=== PATIENT | female | born 1985 | race Caucasian/White ===

== ENCOUNTER 2021-08-21 20:39 | Emergency (ER) | payer OTHER, MEDICAID, SELFPAY ==
--- NOTE | ~2021-08-21 | CT_ITS ---
EXAMINATION: 1. CT facial & cervical spine wo DATE: 08/21/2021 23:22 INDICATION: Facial and neck pain post trauma with head injury and laceration to the right upper lip. TECHNIQUE: 1. Computed tomography (CT) of the maxillofacial region and of the cervical spine were performed with out intravenous contrast. Sagittal and coronal reconstructions of both regions were obtained. Automat ed exposure control and iterative reconstruction technique were employed. The dose-length product was 284.23 mGy-cm. COMPARISON: None. FINDINGS: Maxillofacial CT: Chronic healed blowout fracture along the inferior wall of the left orbit which is healed with mild a pex inferior angulation. Orbits are otherwise normal. There is also an irregular contour to the bilat eral nasal bones without associated soft tissue swelling or acute appearing fracture which also likel y represents sequela of an old healed fracture. No acute maxillofacial fractures identified. The maribel ible, pterygoid plates and zygomatic arches all appear intact. Mild focal wall thickening versus muco us retention cyst at the left maxillary sinus. Remainder of the paranasal sinuses are clear. Soft tis sues at the right side of the upper lobe. There are multiple dental caries along the mandible. Mild r ight and moderate left temporomandibular osteoarthritis. Cervical spine CT: Mild cervicothoracic levocurvature. Nonfocal mild reversal of normal cervical lordosis which is likel y positional. Vertebral body heights are normal. No fracture. Moderate disc height loss at C5-C6 with mild left and moderate right uncovertebral osteoarthritis and associated posterior disc osteophyte c omplex which contributes to mild central canal and bilateral neural foraminal stenosis. Mild disc hei ght loss at C2-C3 through C4-C5 with additional mild left and mild to moderate right uncovertebral os teoarthritis contributing to mild right neural foraminal stenosis at C3-C4. Multilevel mild bilateral cervical facet osteoarthritis. Cervical soft tissues are unremarkable. Minimal biapical pleural-pare nchymal scarring. IMPRESSION: 1. Old healed fractures of the nasal bones and left inferior orbital wall. No acute osseous abnormali ty. 2. Mild to moderate cervical spondylosis with likely positional mild reversal of the normal cervical lordosis. No other acute osseous abnormality. Reviewed, dictated and finalized at location A. IMPRESSION: 1. Old healed fractures of the nasal bones and left inferior orbital wall. No a cute osseous abnormality. 2. Mild to moderate cervical spondylosis with likely positional mild reversal o f the normal cervical lordosis. No other acute osseous abnormality.
--- NOTE | ~2021-08-21 | CT_ITS ---
EXAMINATION: CT brain wo con DATE: 08/21/2021 23:22 INDICATION: Head injury TECHNIQUE: Computed tomography (CT) of the head was performed without intravenous contrast. Sagittal and coronal reconstructions were performed. The mA was adjusted according to patient size. Iterative reconstruction technique was employed. The dose-length product was 605.33 mGy-cm. COMPARISON: None FINDINGS: No fracture. No acute intracranial hemorrhage, acute infarction or abnormal extra axial fluid collect ion. Ventricles are normal and symmetric. No mass/mass effect. The orbits, paranasal sinuses and mast oid air cells are normal. IMPRESSION: 1. Normal head CT. Reviewed, dictated and finalized at location A. IMPRESSION: 1. Normal head CT.
[2021-08-21 20:51] VITALS: BP 135/68; PULSE 73; RESP 16; TEMP 36.7; O2SAT 100
[2021-08-21 22:57] VITALS: BP 105/68; PULSE 62; RESP 18; O2SAT 99
--- NOTE | 2021-08-21 23:03 | ED.GENADULT ---
HPI - General Adult General Chief complaint: Wound/Laceration Stated complaint: lip laceration Time Seen by Provider: 08/21/21 22:52 History of Present Illness HPI narrative: 36-year-old female presented to the emergency department for evaluation of a laceration to her right upper lip. Patient was working on cutting a tree branch and it rebounded and struck her in the face. Patient states she was stunned but had no loss of consciousness. Patient does have some facial tenderness to palpation. Patient also does have some neck pain. Related Data Home Medications Medication Instructions Recorded Confirmed No Home Medications 07/31/19 09/23/20 Allergies Allergy/AdvReac Type Severity Reaction Status Date / Time No Known Allergies Allergy Verified 08/21/21 20:58 Review of Systems Review of Systems: CONSTITUTIONAL: Denies fever, chills, or sweats. EYES: Denies visual changes, redness, or discharge. ENT: Right lip lac. CARDIOVASCULAR: Denies chest pain, palpitations, or edema. RESPIRATORY: Denies cough or dyspnea. GASTROINTESTINAL: Denies abdominal pain, nausea, vomiting, or diarrhea. GENITOURINARY: Denies dysuria or hematuria. SKIN: Denies rash or itching. MUSCULOSKELETAL: Denies back pain, joint pain, or myalgia. NEUROLOGIC: Denies headache, numbness, or weakness. PSYCHIATRIC: Denies anxiety or depression. [facility] Surgical History Surgical History Hx of cholecystectomy Social History Social History Smoking packs per day: 0.5 Smoking cigarettes per day: 10.0 Years smoked: 14 Smoking pack-years: 7.00 Smoking status: Current every day smoker Alcohol intake: current Alcohol use details: socially,1-2 times a month Substance use: never Exam Narrative: APPEARANCE: Well appearing, no pain, no distress, well-nourished. HEAD: normocephalic, facial laceration, dental and facial tenderness to palpation. EYES: PERRLA/EOMI, conjunctivae clear. NOSE: Normal no drainage EARS:TMS clear with good light reflex. NECK: Supple. No adenopathy, no masses. RESPIRATORY: Airway patent, respirations nonlabored. Clear to auscultation bilaterally, no rales, rhonchi, wheezing. CARDIOVASCULAR: Regular rate and rhythm without murmurs rubs or gallops. ABDOMINAL: Soft, nontender, nondistended, normal bowel sounds MUSCULOSKELETAL: Moves all extremities. Strength/ROM intact, No edema, No calf tenderness. NEURO: Alert. Cranial nerves II through XII intact. Grossly intact SKIN: Warm, dry. Normal Color PSYCHIATRIC: Normal affect/mood. Course Course Emergency Course: He showed concern for old nasal fracture or old left orbital wall fracture. Patient denies any prior history of facial fracture. Patient has no nasal tenderness and no left-sided facial tenderness. Laceration was repaired. Patient and family were updated on the importance of close follow-up and on wound care. All questions and concerns were addressed. Vital Signs Vital signs: Vital Signs Temperature 98.0 F 08/21/21 20:51 Pulse Rate 73 08/21/21 20:51 Respiratory Rate 16 08/21/21 20:51 Blood Pressure 135/68 08/21/21 20:51 Pulse Oximetry 100 08/21/21 20:51 Oxygen Delivery Room Air 08/21/21 20:51 Temperature 98.0 F 08/21/21 20:51 Pulse Rate 60 08/22/21 00:29 Respiratory Rate 16 08/22/21 00:29 Blood Pressure 102/65 08/22/21 00:29 Pulse Oximetry 100 08/22/21 00:29 Oxygen Delivery Room Air 08/21/21 22:57 Procedures Laceration Laceration 1: Time: 00:08 Site: face and lip Side (If applicable): right Size (cm): 2 Description: linear Depth: simple, single layer Local Anesthetic: lidocaine 1% and with bicarb Amount of anesthesia used (mL): 1 ====== Skin Level ====== Skin layer closed with: prolene Size (cm): 6-0 Number of sutures: 3
[2021-08-22] MEDS: HYDROcodone/acetaminophen (*CRX) 5-325 MG TABLET 1 TAB PO (00:27)
[2021-08-22] MEDS: IBUPROFEN 600 MG TABLET PO (00:27)
[2021-08-22 00:29] VITALS: BP 102/65; PULSE 60; RESP 16; O2SAT 100
== END 2021-08-22 00:44 | disposition home or self-care (01) ==
LOC: ANHED 08-22 00:26
PROVIDERS: Emergency Provider Emergency Medicine; PCP Physician Assistant
DX: S01.511A Laceration without foreign body of lip, initial encounter (principal); S19.9XXA Unspecified injury of neck, initial encounter; F17.210 Nicotine dependence, cigarettes, uncomplicated; W22.8XXA Striking against or struck by other objects, initial encounter; Y93.H2 Activity, gardening and landscaping
CPT/HCPCS: 12011; 70450; 70486; 72125; 99284; A9270

== ENCOUNTER 2022-08-30 11:59 | Outpatient (CLI) | payer OTHER, SELFPAY ==
--- NOTE | ~2022-08-30 | MMUS_ITS ---
EXAMINATION: MM diagnostic shazia BI w chetan, US breast RT limited HISTORY: Tenderness and lump in the upper outer quadrant of the right breast TECHNIQUE: Craniocaudal, mediolateral, and mediolateral oblique 3-D tomosynthesis images of the anayeli ts were performed and synthetic 2-D images were generated. CAD analysis was submitted and interpreted . High resolution limited right breast ultrasound was performed. COMPARISON: None, baseline BREAST PARENCHYMAL COMPOSITION: The breasts are extremely dense, which lowers the sensitivity of mamm ography. FINDINGS: MAMMOGRAPHIC FINDINGS: No suspicious mass, calcification, or architectural distortion are identified in either breast to sug gest malignancy. No mammographic correlate is identified for the patient's reported right breast pain or palpable abnormality. ULTRASOUND: There is a 5 mm x 3 mm oval, circumscribed, parallel, hypoechoic mass with no posterior features or i nternal vascularity at the 10:00 location, 5 cm from the nipple in the right breast corresponding to the palpable abnormality of concern. IMPRESSION: 1. Probably benign sonographically detected right breast mass corresponding to the palpable abnormali ty of concern. 2. Recommend 6 month follow-up targeted right breast ultrasound. BI-RADS category 3, probably benign findings. Reviewed, dictated and finalized at location A. IMPRESSION: 1. Probably benign sonographically detected right breast mass corresponding to the palpable abnormality of concern. 2. Recommend 6 month follow-up targeted right breast ultrasound. BI-RADS category 3, probably benign findings.
== END 2022-08-30 12:00 | disposition home or self-care (01) ==
LOC: ANHIMG 12:02
PROVIDERS: PCP Physician Assistant; Visit Provider Nurse Practitioner Obstetrics & Gynecology
DX: N63.10 Unspecified lump in the right breast, unspecified quadrant (principal); R92.8 Other abnormal and inconclusive findings on diagnostic imaging of breast
CPT/HCPCS: 76642; 77062; 77066; G0279

== ENCOUNTER 2023-03-06 09:56 | Emergency (ER) | payer OTHER, SELFPAY ==
[2023-03-06 10:34] VITALS: BP 122/60; PULSE 59; RESP 20; TEMP 37; O2SAT 100
--- NOTE | 2023-03-06 13:54 | ECG_ITS ---
Measurements Intervals [place] Rate: 56 P: 70 RI: 145 QRS: 60 QRSD: 109 T: 44 QT: 440 QTc: 425 Interpretive Statements SINUS BRADYCARDIA INCOMPLETE RIGHT BUNDLE BRANCH BLOCK BASELINE ARTIFACT- I, III, AVL BORDERLINE ECG NO PREVIOUS ECG AVAILABLE FOR COMPARISON Electronically Signed On 03-06-2023 14:05:07 NUTRITION SERVICES AIDE by Tank Lyon D.O.
--- NOTE | 2023-03-06 13:54 | ED.DIZZY ---
HPI - Dizziness General Chief Complaint: Dizziness Stated Complaint: dizzy/shaky/vision changes Time Seen by Provider: 03/06/23 13:46 History of Present Illness HPI Narrative: Patient is a healthy 38-year-old female here with dizziness and a headache. She states that over the last couple of days she has been experienced a headache. She notes that it seems to be around her right nondenominational area and radiates throughout. No associated light sensitivity or visual changes. She notes that this morning she started experiencing some dizziness. Dizziness seems to be worse with bending over and improves at rest. She describes the dizziness as feeling of the room is spinning as well as feeling as though she may pass out. 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 Patient currently is not feeling dizzy at rest. She denies any associated chest pain or shortness of breath. She denies any recent illnesses. No cough, congestion, fever, chills. She does note that she has had a swollen lymph node for the last few weeks on her right side near her neck which seems to be improving in size. She is awaiting a primary care doctor visit for this. She denies any prior history of PE or DVT. Was a prior smoker, not an active smoker. She does not take control pills. No prior history of cardiac disease. No history of migraines. Related Data Home Medications Medication Instructions Recorded Confirmed No Home Medications 07/31/19 10/03/22 Allergies Allergy/AdvReac Type Severity Reaction Status Date / Time No Known Allergies Allergy Verified 10/03/22 07:40 Review of Systems Review of Systems: All systems reviewed & are unremarkable except as noted in HPI and below PMFSH Surgical History Surgical History Hx of cholecystectomy Social History Social History Smoking packs per day: 0.5 Smoking cigarettes per day: 10.0 Years smoked: 14 Smoking pack-years: 7.00 Smoking status: Former smoker Alcohol intake: current Alcohol use details: socially,1-2 times a month Substance use: never Exam Narrative: GENERAL: Well-appearing, well-nourished, and in no acute distress. HEAD: Normocephalic, atraumatic. EYES: PERRLA and EOMI. ENT: Nares clear. Mucous membranes moist. No TM abnormalities bilaterally. No appreciated lymphadenopathy in the neck NECK: Supple. CHEST: Clear to auscultation. No respiratory distress. HEART: Regular rate and rhythm. Normal peripheral pulses. ABDOMEN: Soft, nontender, nondistended. EXTREMITIES: Normal range of motion. No edema. SKIN: Warm, dry, no rash. NEURO: No focal deficits. Alert and oriented x3. PSYCH: Normal mood and affect. Course Course Emergency Course: Chart review performed. Patient here with multiple symptoms including headache, dizziness, right eye spots and twitching, upper body tingling. Triage vitals grossly normal. PCP visit note reviewed from 10/03/22 noting active smoker. Patient seen evaluated, nontoxic appearing. Differentials include atypical migraine, nonspecific headache, vertigo, less likely ACS, arrhythmia, PE. Will give IV fluids, migraine cocktail, re-evaluate. Lab work reviewed. CBC within normal limits, D-dimer within normal limits at 0.39. Chemistry grossly normal, troponin negative. Influenza, RSV, COVID negative. Patient re-evaluated and updated on negative workup. She is feeling much better, headache is significantly improved. She did ambulate to the bathroom without difficulty and without dizziness. Advised she should follow up with her primary care doctor. The results of pertinent diagnostic studies and exam findings were discussed. The patient?s provisional diagnosis and plan of care we
[2023-03-06 14:16] VITALS: PULSE 58
[2023-03-06 14:30] LABS: Basophils Absolute Auto 0.1 K/mm3 (0.0-0.1); Basophils Percent Auto 0.5 % (0.2-1.2); Eosinophils Absolute Auto 0.1 K/mm3 (0-0.3); Eosinophils Percent Auto 0.5 % (0-4.4); Hemoglobin 13.6 g/dL (12.0-15.0); Immature Granulocyte Absolute 0.03 K/mm3 (0.00-0.031); Immature Granulocyte Percent A 0.3 % (0-0.5); Lymphocytes Absolute Auto 1.92 K/mm3 (0.9-3.2); Lymphocytes Percent Auto 21.1 % (18.3-44.2); Mean Corpuscular Hemoglobin 32.5 pg (26-34); Mean Corpuscular Volume 95.7 fl (80-100); Mean Platelet Volume 10.3 fl (7.4-10.4); Monocytes Absolute Auto 0.5 K/mm3 (0.1-0.6); Monocytes Percent Auto 5.2 % (2.6-8.5); Neutrophils Absolute Auto 6.6 K/mm3 (1.3-6.7); Neutrophils Percent Auto 72.4 % (45.5-73.1); Platelet Count Result 312 k/mm3 (150-375); Red Blood Count 4.18 M/mm3 (4.2-5.4); Red Cell Distribution Width 11.9 % (11.5-14.5); White Blood Count 9.1 K/mm3 (4.5-10.0)
[2023-03-06] MEDS: SODIUM CHLORIDE 0.9% IV 1,000 ML 999 ML IV CONT (14:40)
[2023-03-06] MEDS: METOCLOPRAMIDE HCL INJ 10 MG/2 ML VIAL IV PUSH (14:40)
[2023-03-06] MEDS: KETOROLAC 30 MG/ML VIAL (*BKC) 15 MG IV PUSH (14:40)
[2023-03-06 14:41] LABS: Alanine Aminotransferase 19 U/L (6-35); Albumin Level 4.5 g/dL (3.5-5.1); Alkaline Phosphatase 52 U/L (38-126); Anion Gap 9 mmol/L (8-16); Aspartate Amino Transferase 30 U/L (14-36); Bilirubin,Total 0.7 mg/dL (0.2-1.3); Blood Urea Nitrogen 9 mg/dL (7-17); Calcium 9.2 mg/dL (8.4-10.2); Carbon Dioxide 25 mmol/L (22-30); Chloride 105 mmol/L (98-107); Estimated Glomerular Filt Rate > 60; Glucose 83 mg/dL (65-110); Magnesium 1.7 mg/dL (1.6-2.3); Sodium 139 mmol/L (137-145)
[2023-03-06] MEDS: diphenhydrAMINE HCl INJ 50 MG/ML VIAL 25 MG IV PUSH (14:41)
[2023-03-06 14:45] LABS: D Dimer 0.39 ug/mL (<0.48)
[2023-03-06 14:49] LABS: Troponin I < 0.012 ng/mL (0.000-0.034)
[2023-03-06 15:16] LABS: Influenza A QL RT-PCR Negative (Negative); Influenza B QL RT-PCR Negative (Negative); RSV RNA, RT-PCR Negative (Negative); SARS-CoV-2 RNA PCR Negative (Negative)
== END 2023-03-06 16:54 | disposition home or self-care (01) ==
PROVIDERS: Emergency Provider Student in an Organized Health Care Education/Training Program; PCP Physician Assistant
DX: R42 Dizziness and giddiness (principal); R51.9 Headache, unspecified; Z87.891 Personal history of nicotine dependence; Z20.822 Contact with and (suspected) exposure to COVID-19
CPT/HCPCS: 36415; 80053; 83735; 84484; 85025; 85380; 87637; 93005; 96361; 96374; 96375; 99284; J1200; J1885; J2765; J7030

== ENCOUNTER 2023-04-04 14:37 | Emergency (ER) | payer OTHER, SELFPAY ==
--- NOTE | 2023-04-04 14:39 | ED.SKABFB ---
HPI - Skin/Abscess/Foreign Bdy General Chief complaint: Animal Bite Stated complaint: Cat Bite Time Seen by Provider: 04/04/23 14:39 Source: patient Mode of arrival: ambulatory Limitations: no limitations History of Present Illness HPI narrative: Patient is a 38-year-old female who presents with cat bite happened with stray cat last night. Patient was bit on left hand proximal of thumb and tip of right index finger. Patient also has scratches on bilateral hands and right calf. Patient wash with soap and water and hydrogen peroxide. Patient applied Neosporin. Reports left hand has swollen today. Related Data Allergies Allergy/AdvReac Type Severity Reaction Status Date / Time No Known Allergies Allergy Verified 04/04/23 14:40 Review of Systems Review of Systems: All systems reviewed & are unremarkable except as noted in HPI and below Constitutional: Constitutional: Denies body ache(s), Denies chills, Denies fatigue, Denies fever(s), Denies headache(s), Denies malaise and Denies weakness Eyes: Eyes: Denies blurry vision, Denies irritation and Denies loss of vision ENT: Denies otalgia, Denies headache(s), Denies nasal discharge, Denies sinus pain and Denies sore throat Cardiovascular: Cardiovascular: Denies chest pain, Denies irregular heart rhythm and Denies dyspnea Respiratory: Respiratory: Denies dyspnea Gastrointestinal: Gastrointestinal: Denies abdominal pain, Denies melena, Denies hematochezia, Denies diarrhea, Denies nausea and Denies vomiting Musculoskeletal: Musculoskeletal: Denies back pain, Denies myalgias and Denies arthralgias Integumentary/Breasts: Skin/Breast: Denies pruritus, Denies rash and Reports wounds Neurologic: Denies headache(s), Denies loss of vision and Denies weakness Psychiatric: Psychiatric: Reports no additional psychiatric complaints Endocrine: Endocrine: Denies fatigue PMFSH Surgical History Surgical History Hx of cholecystectomy Social History Social History Smoking packs per day: 0.5 Smoking cigarettes per day: 10.0 Years smoked: 14 Smoking pack-years: 7.00 Smoking status: Former smoker Alcohol intake: current Alcohol use details: socially,1-2 times a month Substance use: never Comments At time of signature, agree with nursing past medical, surgical, social and family history. There is no relevant family history pertinent to the presenting complaint. Exam Const: General: cooperative, healthy appearing, comfortable, no acute distress and well nourished Nutritional Appearance: well nourished Orientation/consciousness: patient oriented x3 Limitations: no limitations HENMT: Head: normal to inspection, normocephalic and atraumatic Ears: hearing grossly normal bilaterally and external ears normal Face/Nose/Sinus: Normal external nose present, normal facial exam and face symmetric Face and sinus: normal facial exam and face symmetric Mouth: Yes lip normal Eyes: General: appearance normal, both eyes and all related structures Alignment and Position: alignment normal and position normal Periorbital: periorbital findings normal Eyelids: eyelids normal Pupils: Equal, round and reactive pupils present EOM: EOMs intact bilaterally Neck: Neck: normal visual inspection, full ROM and supple Chest: Chest palpation & inspection: normal inspection of the chest Resp: Effort & Inspection: normal respiratory effort and able to speak in complete sentences Auscultation: clear to auscultation bilaterally Cardio: Rate: regular rate Rhythm: regular rhythm Heart sounds: S1 normal heart sound present and S2 normal heart sound present GI: Inspection: normal to inspection Skin: General skin exam: normal color and no rashes or lesions noted Neuro: General: patient oriented x3 and moves all extremities Cranial nerves: Yes Equal, round and reactive pupils present
[2023-04-04 14:50] VITALS: BP 99/56; PULSE 96; RESP 16; TEMP 37; O2SAT 100
[2023-04-04] MEDS: TETANUS,DIPHTHERIA,AC PERTUSSIS ADULT (0.5 ML) BOOSTRIX IM (15:07)
== END 2023-04-04 15:11 | disposition home or self-care (01) ==
LOC: EXPCOLL 14:44
PROVIDERS: Emergency Provider Nurse Practitioner Family; PCP Physician Assistant
DX: S61.210A Laceration without foreign body of right index finger without damage to nail, initial encounter (principal); S61.452A Open bite of left hand, initial encounter; W55.01XA Bitten by cat, initial encounter; Z23 Encounter for immunization; Z87.891 Personal history of nicotine dependence
CPT/HCPCS: 90471; 90715; 99213; G0463

== ENCOUNTER 2023-09-24 08:20 | Outpatient (CLI) | payer OTHER, SELFPAY ==
--- NOTE | ~2023-09-24 | US_ITS ---
US breast RT limited 09/24/2023 09:22 Indication: Right breast mass Procedure: High-resolution Limited ultrasound of the right breast Comparison: 08/30/2022 Findings: At 9:30, 6 cm from the nipple there is a 5 mm cyst. At 10:00, 4 cm from the nipple there is an intramammary lymph node measuring 6 mm. No suspicious masses to suggest malignancy. Impression: 1: No sonographic evidence for malignancy. Benign findings. Routine yearly screening mammogram beginning at age 40 and regular clinical breast examination are re commended. BI-RADS CATEGORY 2 - BENIGN FINDINGS Reviewed, dictated and finalized at location B. Impression: 1: No sonographic evidence for malignancy. Benign findings. Routine yearly screening mammogram beginning at age 40 and regular clinical giovani ast examination are recommended. BI-RADS CATEGORY 2 - BENIGN FINDINGS
== END 2023-09-24 08:21 | disposition home or self-care (01) ==
PROVIDERS: PCP Physician Assistant; Visit Provider Nurse Practitioner
DX: N63.10 Unspecified lump in the right breast, unspecified quadrant (principal)
CPT/HCPCS: 76642

== ENCOUNTER 2024-05-04 17:22 | Emergency (ER) | payer OTHER, SELFPAY ==
--- NOTE | ~2024-05-04 | CT_ITS ---
EXAMINATION: CTA chest PE protocol DATE: 05/04/2024 20:44 INDICATION: cp, SOB, family hx of blood clots TECHNIQUE: Computed tomography angiography (CTA) of the chest was performed with 100 mL Omnipaque-350 intravenous contrast timed to evaluate the pulmonary arteries. Coronal maximum intensity projection 3D-reconstructions were created by the technologist. The dose-length product (DLP) was 153.66 mGy-cm. Automated exposure control and iterative reconstruction technique were employed. COMPARISON: X-ray chest, same date. FINDINGS: Lung parenchyma and airways: 6 mm pleural-based nodule with predominantly groundglass opacity and pos sible minimal solid component and tiny associated air cyst or area of cavitation. Minimal biapical pl eural scarring Right minor fissure node. Pleura: Unremarkable. Thoracic inlet, axillae and chest wall: Unremarkable. Thoracic aorta: No significant dilation. No dissection. Mediastinum: Normal. Heart and pericardium: Normal. Coronary artery calcifications: . Upper abdomen: Status post cholecystectomy. Bones: No acute osseous finding. Pulmonary arteries: Study quality: Adequate. No pulmonary emboli detected. IMPRESSION: No CT evidence of acute pulmonary embolus. 6 mm left upper lobe partly solid pulmonary nodule, presumably a small focus of inflammation or infec tion. Recommend low-dose noncontrast CT of the chest in 3-6 months to confirm resolution. Otherwise, no acute process detected in the chest. Reviewed, dictated and finalized at location K. IMPRESSION: No CT evidence of acute pulmonary embolus. 6 mm left upper lobe partly solid pulmonary nodule, presumably a small focus of inflammation or infection. Recommend low-dose noncontrast CT of the chest in 3 -6 months to confirm resolution. Otherwise, no acute process detected in the chest.
--- NOTE | ~2024-05-04 | XR_ITS ---
CHEST RADIOGRAPH, PA AND LATERAL CLINICAL HISTORY: cp, tingling and cold hands, . COMPARISON: None available TECHNIQUE: PA and lateral views of the chest. FINDINGS The cardiomediastinal silhouette is unremarkable. The lungs are clear. Visualized osseous structures and soft tissues are unremarkable. IMPRESSION: No focal infiltrate or effusion. Reviewed, dictated and finalized at location A.
[2024-05-04 17:24] VITALS: BP 128/66; PULSE 76; RESP 16; TEMP 37.1; O2SAT 100
--- NOTE | 2024-05-04 17:24 | ECG_ITS ---
Test Date: 2024-05-04 17:30:59 Measurements Intervals [place] Rate: 74 P: 76 NV: 134 QRS: 65 QRSD: 103 T: 50 QT: 391 QTc: 436 Interpretive Statements SINUS RHYTHM POSSIBLE LEFT ATRIAL ENLARGEMENT [-0.1mV P-WAVE IN V1/V2] INCOMPLETE RIGHT BUNDLE BRANCH BLOCK [90+ ms QRS DURATION, TERMINAL R IN V1/V2, 40+ ms S IN I/aVL/V4/V5/V6] No previous ECG available for comparison Electronically Signed On 05-05-2024 14:34:30 CDT by Дмитрий Oliver M.D.
[2024-05-04 17:41] LABS: Basophils Absolute Auto 0.1 K/mm3 (0.0-0.1); Basophils Percent Auto 0.6 % (0.2-1.2); Eosinophils Absolute Auto 0.1 K/mm3 (0-0.3); Eosinophils Percent Auto 1.2 % (0-4.4); Hematocrit 36.2 % (37.0-47.0); Hemoglobin 12.5 g/dL (12.0-15.0); Immature Granulocyte Absolute 0.02 K/mm3 (0.00-0.031); Immature Granulocyte Percent A 0.2 % (0-0.5); Lymphocytes Absolute Auto 2.86 K/mm3 (0.9-3.2); Lymphocytes Percent Auto 32.1 % (18.3-44.2); Mean Corpuscular HGB Conc 34.5 g/dl (32-36); Mean Corpuscular Hemoglobin 33.1 pg (26-34); Mean Corpuscular Volume 95.8 fl (80-100); Mean Platelet Volume 9.9 fl (7.4-10.4); Monocytes Absolute Auto 0.6 K/mm3 (0.1-0.6); Monocytes Percent Auto 6.8 % (2.6-8.5); Neutrophils Absolute Auto 5.3 K/mm3 (1.3-6.7); Neutrophils Percent Auto 59.1 % (45.5-73.1); Platelet Count Result 291 k/mm3 (150-375); Red Blood Count 3.78 M/mm3 (4.2-5.4); Red Cell Distribution Width 11.8 % (11.5-14.5); White Blood Count 8.9 K/mm3 (4.5-10.0)
[2024-05-04 17:56] LABS: Alanine Aminotransferase 18 U/L (6-35); Albumin Level 4.4 g/dL (3.5-5.1); Alkaline Phosphatase 56 U/L (38-126); Anion Gap 10 mmol/L (4-12); Aspartate Amino Transferase 24 U/L (14-36); Bilirubin,Total 0.4 mg/dL (0.2-1.3); Blood Urea Nitrogen 12 mg/dL (7-17); Calcium 9.2 mg/dL (8.4-10.2); Carbon Dioxide 24 mmol/L (22-30); Chloride 103 mmol/L (98-107); Estimated CRCL calculation 76 ml/min; Estimated Glomerular Filt Rate > 60; Glucose 94 mg/dL (65-110); Lipase 128 U/L (23-300); Potassium 3.5 mmol/L (3.4-5.0); Prothrombin Time 13.8 Seconds (11.1-14.7); Sodium 137 mmol/L (137-145)
[2024-05-04 17:57] LABS: Partial Thromboplastin Time 32.3 Seconds (22.3-36.8)
[2024-05-04 18:07] LABS: Troponin I < 0.012 ng/mL (0.000-0.034)
--- OUTSIDE RECORDS SUMMARY | 2024-05-04 19:11 | XMS_ITS | Data Portability ---
Author Organization 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 Patient will come back in a year unless there are new symptoms. [email or web address] Not available 05/01/2021 13:03:07 08/16/2022 08/16/2022 Annual gynecological exam performed. Patient will come back in a year unless there are new symptoms. Not available 08/16/2022 11:47:13 08/27/2023 08/27/2023 Annual gynecological exam performed. Patient will come back in a year unless there are new symptoms. [email or web address] Not available 08/27/2023 14:44:44 Plan of Treatment Reminders Order Date Submit Date Provider Last Modified By Organization Details Last Modified Time Details Appointments None recorded. Lab CBC w/ auto diff 2021 022 [facility] (Lab), [address], [place], [address], 2 05:32:04 CMP, serum or plasma 2021 022 [facility] (Lab), [address], [place], [address], 2 05:32:05 lipid panel, blood 2021 022 [facility] (Lab), [address] [place], [address], 2 05:32:05 TSH, serum or plasma 2021 022 [facility] (Lab), [address] [facility], [place], [address], 2 05:32:05 vitamin D, 25-hydroxy, total, serum 2021 022 [facility] (Lab), [address], [place], [address], 2 05:32:06 HbA1c (hemoglobin A1c), blood 2021 022 [facility] (Lab), [address] [facility] [facility] [address], [place], [address], 2 05:32:07 Referral None recorded. Procedures None recorded. Surgeries None recorded. Imaging US, breast, unilateral - due for repeat 6 month right breast u/s 2023 024 [facility], [address], [place], [address], 4 10:51:00 US, breast, unilateral, w/ axilla 2022 023 [facility], [address], [address], [place], [address], 3 16:37:08 Medication Orders clindamycin HCl 300 mg capsule 2022 024 [facility], [address], [place], [address], 4 15:54:16 Diflucan 150 mg tablet 2022 024 [facility] [address], [address], [place], [address], 4 15:54:27 Patient TargetsNo targets recorded. Patient InstructionsNo instructions recorded. Reason for Referral None Reported. Results Created Date Observation Date Name Description Value Unit Range Abnormal Flag Note LastModifiedBy Organization Detail LastModifiedTime 05/02/19 22 05/01/2021 CBC W/DIF F WBC 8.9 10'3/ uL 3.6-10 .2 Not Available [facility] (Lab) [address], [place], [address], 05/02/2021 05:32:04 05/02/19 22 05/01/2021 CBC W/DIF F RBC 4.40 10'6/ uL (based on docume nted legal sex) 4.10-5 .30 Not Available [facility] (Lab) [address] [place], [address], 05/02/2021 05:32:04 05/02/19 22 05/01/2021 CBC W/DIF F HGB 14.6 g/dL (based on docume nted legal sex) 11.9-1 5.8 Not Available [facility] (Lab) [address] [place], [address], 05/02/2021 05:32:04 05/02/19 22 05/01/2021 CBC W/DIF F HCT 43.0 % (based on docume nted legal sex) 37.4-4 8.3 Not Available [facility] (Lab) [address] [place], [address], 05/02/2021 05:32:04 05/02/19 22 05/01/2021 CBC W/DIF F MCV 97.0 fL 82.0-9 9.0 Not Available [facility] (Lab) [address] [place], [address], 05/02/2021 05:32:04 05/02/19 22 05/01/2021 CBC W/DIF F MCH 33.0 pg 27.0-3 3.0 Not Available [facility] (Lab) [address] [place], [address], 05/02/2021 05:32:04 05/02/19 22 05/01/2021 CBC W/DIF F MCHC 34.0 g/dL 32.0-3 6.0 Not Available [facility] (Lab) [address], [place], [address], 05/02/2021 05:32:04 05/02/19 22 05/01/2021 CBC W/DIF F RDW 12.0 % 11.0-1 5.0 Not Available [facility] (Lab) [address], [place], [address], 05/02/2021 05:32:04 05/02/19 22 05/01/2021 CBC W/DIF F plt 298 10'3/ uL 150-45 0 Not Available [facility] (Lab) [address], [place], [address], 05/02/2021 05:32:04 05/02/19 22 05/01/2021 CBC W/DIF F MPV 11.1 fL 9.8-12 .7 Not Available [facility] (Lab) [address], [place], [address], 05/02/2021 05:32:04 05/02/19 22 05/01/2021 CBC W/DIF F NRBC's 0.00 % 0 Not Available [facility] (Lab) [address], [place], [address], 05/02/2021 05:32:04 05/02/19 22 05/01/2021 CBC W/DIF F absolute NRBCs 0.0 10'3/ uL 0 Not Available [facility] (Lab) [address] [place], [address], 05/02/2021 05:32:04 05/02/19 22 05/01/2021 CBC W/DIF F neutrophils 59.0 % 37.0-7 2.0 Not Available [facility] (Lab) [address] [place], [address], 05/02/2021 05:32:04 05/02/19 22 05/01/2021 CBC W/DIF F lymphocytes 32.0 % 16.0-4 8.0 Not Available [facility] (Lab) [address] [facility], [place], [address], 05/02/2021 05:32:04 05/02/19 22 05/01/2021 CBC W/DIF F monocytes 7.0 % 4.0-14 .0 Not Available [facility] (Lab) [address] [facility], [place], [address], 05/02/2021 05:32:04 05/02/19 22 05/01/2021 CBC W/DIF F eosinophils 1.0 % 0.0-9. 0 Not Available [facility] (Lab) [address] [facility], [place], [address], 05/02/2021 05:32:04 05/02/19 22 05/01/2021 CBC W/DIF F basophils 1.0 % 0.0-2. 0 Not Available [facility] (Lab) [address] [facility], [place], [address], 05/02/2021 05:32:04 05/02/19 22 05/01/2021 CBC W/DIF F immature granulocytes 0.0 % no define d refere nce range Not Available [facility] (Lab) [address] [facility], [place], [address], 05/02/2021 05:32:04 05/02/19 22 05/01/2021 CBC W/DIF F absolute neutrophils 5.2 10'3/ uL 1.1-6. 0 Not Available [facility] (Lab) [address] [place], [address], 05/02/2021 05:32:04 05/02/19 22 05/01/2021 CBC W/DIF F absolute lymphocytes 2.9 10'3/ uL 0.7-3. 4 Not Available [facility] (Lab) [address] [facility], [place], [address], 05/02/2021 05:32:04 05/02/19 22 05/01/2021 CBC W/DIF F absolute monocytes 0.6 10'3/ uL 0.3-1. 0 Not Available [facility] (Lab) [address] [facility], [place], [address], 05/02/2021 05:32:04 05/02/19 22 05/01/2021 CBC W/DIF F absolute eosinophils 0.1 10'3/ uL 0.0-0. 6 Not Available [facility] (Lab) [address] [facility], [place], [address], 05/02/2021 05:32:04 05/02/19 22 05/01/2021 CBC W/DIF F absolute basophils 0.1 10'3/ uL 0.0-0. 1 Not Available [facility] (Lab) [address] [facility], [place], [address], 05/02/2021 05:32:04 05/02/19 22 05/01/2021 CBC W/DIF F absolute immature granulocytes 0.00 10'3/ uL 0.00-0 .10 022 2:11 AM: P indic ates parti al resul ts on a panel have been relea sed. Addit ional resul ts will follo w. 022 2:12 AM: This resul t has been final verif ied. No addit ional or martines ed resul ts are expec kaylee. Not Available [facility] (Lab) [address] [facility] [facility], [place], [address], 05/02/2021 05:32:04 05/02/19 22 05/01/2021 LIPID PANEL ,AMA (LDL- CALC) total cholesterol 189 mg/dL 0-199 Not Available [facility] (Lab) [address], [place], [address], 05/02/2021 05:32:04 05/02/19 22 05/01/2021 LIPID PANEL ,AMA (LDL- CALC) triglyceride s 132 mg/dL 0.00-1 50.00 NCEP Refer ence Value s for Trigl yceri theodore: Karlee l: <150 mg/dL Borde rline High: 150 - 199 mg/dL High: 200 - 499 mg/dL Very High: >/= 500 mg/dL Not Available [facility] (Lab) [address] [place], [address], 05/02/2021 05:32:04 05/02/19 22 05/01/2021 LIPID PANEL ,AMA (LDL- CALC) HDL cholesterol 52 mg/dL >40 Not Available [facility] (Lab) [address] [place], [address], 05/02/2021 05:32:04 05/02/19 22 05/01/2021 LIPID PANEL ,AMA (LDL- CALC) LDL cholesterol 111 mg/dL 0-99 high Cutof f value s recom lakshmi d by the Natio nal Lois stero l Educa tion Progr am: ZAIDA ABLE: Lois stero l <200 mg/dL LDL <100 mg/dL BORDE RLINE : Lois stero l 200-2 39 mg/dL LDL 101-1 59 mg/dL HIGHE R RISK: Lois stero l >240 mg/dL LDL >160 mg/dL , HDL <40 mg/dL Not Available [facility] (Lab) [address] [place], [address], 05/02/2021 05:32:04 05/02/19 22 05/01/2021 LIPID PANEL ,AMA (LDL- CALC) non-HDL cholesterol 137 mg/dL no refere nce range A reaso nable goal for non-H DL lois stero l is one that is 30 mg/dL highe r than the LDL lois stero l goal. Not Available [facility] (Lab) [address] [place], [address], 05/02/2021 05:32:04 05/02/19 22 05/01/2021 LIPID PANEL ,AMA (LDL- CALC) chol/HDL ratio 3.6 . 0.0-5. 0 Not Available [facility] (Lab) [address] [facility], [place], [address], 05/02/2021 05:32:04 05/02/19 22 05/01/2021 CMP(C OMPRE HENSI VE METAB OLIC PANEL ) sodium 137 mmol/ L 133-14 6 Not Available [facility] (Lab) [address] [facility] [facility], [place], [address], 05/02/2021 05:32:05 05/02/19 22 05/01/2021 CMP(C OMPRE HENSI VE METAB OLIC PANEL ) potassium 4.0 mmol/ L 3.5-5. 1 Not Available [facility] (Lab) [address] [facility], [place], [address], 05/02/2021 05:32:05 05/02/19 22 05/01/2021 CMP(C OMPRE HENSI VE METAB OLIC PANEL ) chloride 102 mmol/ L 98-107 Not Available [facility] (Lab) [address] [facility], [place], [address], 05/02/2021 05:32:05 05/02/19 22 05/01/2021 CMP(C OMPRE HENSI VE METAB OLIC PANEL ) carbon dioxide 28 mmol/ L 21-31 Not Available [facility] (Lab) [address] [place], [address], 05/02/2021 05:32:05 05/02/19 22 05/01/2021 CMP(C OMPRE HENSI VE METAB OLIC PANEL ) anion gap 7 mmol/ L 4-13 Not Available [facility] (Lab) [address] [place], [address], 05/02/2021 05:32:05 05/02/19 22 05/01/2021 CMP(C OMPRE HENSI VE METAB OLIC PANEL ) blood urea nitrogen 6 mg/dL 7-25 low Not Available [facility] (Lab) [address] [facility], [place], [address], 05/02/2021 05:32:05 05/02/19 22 05/01/2021 CMP(C OMPRE HENSI VE METAB OLIC PANEL ) creatinine 0.85 mg/dL 0.60-1 .30 Not Available [facility] (Lab) [address] [facility], [place], [address], 05/02/2021 05:32:05 05/02/19 22 05/01/2021 CMP(C OMPRE HENSI VE METAB OLIC PANEL ) egfrcr (CKD-epi 2020) >90 mL/mi n/1.7 3_m2 >=60 Not Available [facility] (Lab) [address] [facility], [place], [address], 05/02/2021 05:32:05 05/02/19 22 05/01/2021 CMP(C OMPRE HENSI VE METAB OLIC PANEL ) calcium 9.5 mg/dL 8.3-10 .5 Not Available [facility] (Lab) [address] [facility], [place], [address], 05/02/2021 05:32:05 05/02/19 22 05/01/2021 CMP(C OMPRE HENSI VE METAB OLIC PANEL ) glucose 75 mg/dL 70-100 Not Available [facility] (Lab) [address] [facility], [place], [address], 05/02/2021 05:32:05 05/02/19 22 05/01/2021 CMP(C OMPRE HENSI VE METAB OLIC PANEL ) protein, total 7.4 g/dL 6.4-8. 3 Not Available [facility] (Lab) [address] [facility], [place], [address], 05/02/2021 05:32:05 05/02/19 22 05/01/2021 CMP(C OMPRE HENSI VE METAB OLIC PANEL ) albumin 4.8 g/dL 3.5-5. 0 Not Available [facility] (Lab) [address] [facility], [place], [address], 05/02/2021 05:32:05 05/02/19 22 05/01/2021 CMP(C OMPRE HENSI VE METAB OLIC PANEL ) ALT 15 units /L 9-43 Not Available [facility] (Lab) [address] [place], [address], 05/02/2021 05:32:05 05/02/19 22 05/01/2021 CMP(C OMPRE HENSI VE METAB OLIC PANEL ) alkaline phosphatase 59 units /L 34-104 Not Available [facility] (Lab) [address] [facility], [place], [address], 05/02/2021 05:32:05 05/02/19 22 05/01/2021 CMP(C OMPRE HENSI VE METAB OLIC PANEL ) AST 21 units /L 13-39 Not Available [facility] (Lab) [address] [facility], [place], [address], 05/02/2021 05:32:05 05/02/19 22 05/01/2021 CMP(C OMPRE HENSI VE METAB OLIC PANEL ) bilirubin, total 0.5 mg/dL 0.2-1. 2 Not Available [facility] (Lab) [address] [facility], [place], [address], 05/02/2021 05:32:05 05/02/19 22 05/01/2021 TSH, REFLE X FREE T4 TSH 1.79 uIU/m L 0.30-5 .33 Not Available [facility] (Lab) [address] [place], [address], 05/02/2021 05:32:05 05/02/19 22 05/01/2021 VITAM IN B12 / FOLAT E PANEL vitamin B12 365 pg/mL 180-91 4 Karlee l Range : 180-9 14 pg/mL . Indet ermin ate Range : 145-1 80 pg/mL . Defic ient Range : <=145 pg/mL . Not Available [facility] (Lab) [address] [facility], [place], [address], 05/02/2021 05:32:06 05/02/19 22 05/01/2021 VITAM IN B12 / FOLAT E PANEL folate, serum >20.0 NG/mL 6.0-20 .0 high Not Available [facility] (Lab) [address] [facility], [place], [address], 05/02/2021 05:32:06 05/02/19 22 05/01/2021 VITAM IN D, 25-OH (TOTA L D2/D3 ) vitamin D, 25-hydroxy, total 20.8 NG/mL 30-80 low NOTE: Defic iency : <20 ng/mL Insuf ficie ncy: 20-29 ng/mL Optim um Level : 30-80 ng/mL Possi ble Toxic ity: >80 ng/mL Most patie nts with toxic ity have level s >150 ng/mL . Not Available [facility] (Lab) [address] [facility], [place], [address], 05/02/2021 05:32:06 05/02/19 22 05/01/2021 HEMOG LOBIN A1C hemoglobin A1C 5.1 % 0-5.6 The Ameri can [employer] [facility] [employer] i[employer] n recom mends that a prima ry goal of thera py licha garcia be a HBA1C of < 7% and that physi cians shoul d reeva luate the treat ment regim en in patie nts with HBA1C value s consi stent ly > 8%. <5.7% Karlee l 5.7 - 6.4% Incre ased risk for diabe shashank >=6.5 % Diagn ostic of diabe shashank <7.0% Goal of thera py >8.0% Actio n sugge sted Not Available [facility] (Lab) [address], [place], [address], 05/02/2021 05:32:06 05/02/19 22 05/01/2021 IMAGE GUIDE D PAP AND HPV REGAR DLESS image guided Pap, HPV regardless of Pap result SEE RESULT S BELOW CASE REPOR T: Cytol ogy Gynec ologi bonny Repor t Case: [id number] Autho mary wall Provi carolyn: Peter Eng MD Colle cted: 05/01 1352 Order ing Locat ion: [place] [facility] Recei ophelia: 05/02 0157 First Scree n: Maylin Hernandez ret, CT Speci men: Scree valentin Pap - Image d, Cervi x STATE MENT OF ADEQU ACY: Satis facto ry for evalu ation Trans forma tion zone compo nent prese nt Parti ally obscu ring infla mmati on prese nt. FINAL DIAGN OSIS: Negat mitch for Intra epith elial Lesio n or Ajay benjamin (NIL) . Elect patricia conway elvis d by Maylin Hernandez ret, CT on 2021 at 3:28 PM ----- ----- ----- ----- ----- ----- ----- ----- ----- ----- ----- ----- ----- ----- ----- ----- ----- ---- HPV RESUL TS: HPV mRNA E6/E7 : No HPV mRNA Detec kaylee NOTE: This high risk HPV mRNA assay detec ts fourt een high- risk HPV types (16, 18, 31, 33, 35, 39, 45, 51, 52, 56, 58, 59, 66, 68) witho ut diffe renti ation . COMME NT: Note: This speci men was revie wed by a Cytot echno logis t and/o r Patho logis t (as indic ated in this repor t) after evalu ation using the Thinp rep Imagi ng Syste m. CLINI BONNY INFOR MATIO N: Menst rual Statu s: LMP (if appli cable ): Clini bonny Histo ry/Pr eviou s Pap: Type of Neopl christina (if appli cable ): Signi fican t Clini bonny Findi ngs: Other Histo ry: Hormo arnold (if appli cable ): PAP EDUCA CARMELO L NOTE: The Pap Test is a scree valentin test with an inher ent false negat mitch rate. Liqui d-bas ed sampl ing may decre ase, but will not elimi heriberto, false negat mitch resul ts. A negat mitch resul t does not precl ude the prese nce and/o r devel opmen t of disea se, since the prese nce of abnor mal cells in the sampl e depen ds on the locat ion of the lesio n and sampl ing techn ique. Karel nued regul ar scree valentin is the best metho d of cance r preve ntion . If repor kaylee cytol ogic findi ng do not corre late with physi bonny and/o r histo rical findi ngs, furth er inves tigat ion is recom lakshmi d, as clini lynette warrmanpreet nted. Not Available [facility] (Lab) [address] [facility] [facility], [place], [address], 05/05/2021 16:41:10 08/31/19 23 08/30/2022 US, vanesa adam , w/ comfort case No observ ation record ed. [address] [place] [address], [address], 09/08/2022 10:28:27 09/24/19 24 09/24/2023 , vanesa adam No observ ation record ed. [email or web address] [place] [address] [place] [address], [address], 09/25/2023 15:20:38 Result Notes None recorded. Problems Name Problem SNOMED Code Status Onset Date Resolution Date Notes Provider Name and Address Organization Details Recorded Time Pelvic and perineal pain 107241634 Active 2019 Pelvic and perineal pain;Rec orded Elsewher e: No Locat ion: [facility] S ource: EHR Log Chipper Operator jurgen: N Practi ce ID: [id number] Jd lable Time: 04:45:00 PM Not Available [facility] 0 21:36:10 Lump in upper outer quadrant of right breast [id number] 4108 Active 2017 Unspecif ied lump in the right breast, upper outer quadrant ;Recorde d Elsewher e: No Locat ion: Rosy garcia [facility] S ource: EHR Log Chipper Operator jurgen: N Gordonti ce ID: [id number] Jd lable Time: 10:30:00 AM Not Available [facility] 0 21:36:10 Pregnanc y test negative 512889303 Active 2016 Encounte r for pregnanc y test, result negative ;Recorde d Elsewher e: No Locat ion: Yuliapiotr radha [facility] S ource: EHR Log Chipper Operator jurgen: N Gordonti ce ID: [id number] Jd lable Time: 03:45:00 PM Not Available [facility] 0 21:36:10 Vaginiti s and vulvovag initis Active 2012 Vaginiti s;Record ed Elsewher e: No Locat ion: Rosy garcia [facility] S ource: EHR Log Chipper Operator jurgen: N Grodonti ce ID: [id number] Jd lable Time: 01:00:00 PM Not Available [facility] 0 21:36:[address] Concept Active 2019 Encntr for relations specialist exam (general ) (routine ) w/o abn findings ;Recorde d Elsewher e: No Locat ion: Rosy garcia [facility] S ource: EHR Log Chipper Operator jurgen: N Gordonti ce ID: [id number] Jd lable Time: 08:30:00 AM Not Available [facility] 0 21:36:10 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 191893977 Active 2017 Female PID;Curtis rded Elsewher e: No Locat ion: Yuliajordonсветлана garcia [facility] S ource: EHR Log Chipper Operator jurgen: N Gordonti ce ID: [id number] Jd lable Time: 05:15:00 PM Not Available [facility] 0 21:36:10 Lesion of ovary Active 2018 Other ovarian cyst, right side;Rec orded Elsewher e: No Locat ion: Yuliapiotr radha [facility] S ource: EHR Log Chipper Operator jurgen: N Gordonti ce ID: [id number] Jd lable Time: 04:15:00 PM Not Available [facility] 0 21:36:11 Polyp of cervix 64880700 Active 2019 Polyp of cervix uteri;Re corded Elsewher e: No [facility] S ource: EHR Log Chipper Operator jurgen: N Practi ce ID: [id number] Jd lable Time: 11:30:00 AM Not Available [facility] 0 21:36:11 Lymphade nitis 79224829 Active 2017 Lymphade nitis;Re corded Elsewher e: No Locat ion: [facility] N Gordonti ce ID: [id number] Jd lable Time: 10:30:00 AM Not Available [facility] 0 21:36:11 Cyst of ovary Completed 201805/01/2021 Unspecif ied ovarian cyst, unspecif ied side;Rec orded Elsewher e: No Locat ion: [facility]: N Gordonti ce ID: [id number] Jd lable Time: 02:30:00 PM Christelle Gill [facility] 2 13:04:21 Screenin g for malignan t neoplasm of cervix Active 2012 Screenin g for malignan t neoplasm s of the cervix;R ecorded Elsewher e: No Locat ion: [facility] S ource: EHR Log Chipper Operator jurgen: N Gordonti ce ID: [id number] Jd lable Time: 03:30:00 PM Not Available [facility] 0 21:36:11 Evaluati on finding Active 2018 Hematuri a, unspecif ied;Curtis rded Elsewher e: No Locat ion: [facility] N Gordonti ce ID: [id number] Jd lable Time: 02:30:00 PM Not Available [facility] 0 21:36:11 Syphilis test finding 443490162 Active 2017 Encounte r for STD screenin g;Record ed Elsewher e: No Locat ion: [facility] radha [facility] S ource: EHR Log Chipper Operator jurgen: N Practi ce ID: [id number] Jd lable Time: 04:15:00 PM Not Available [facility] 0 21:36:11 Right lower quadrant pain 016204131 Active 2012 Abdomina l pain, right lower quadrant ;Recorde d Elsewher e: No Locat ion: [facility] radha [facility] S ource: EHR Log Chipper Operator jurgen: N Practi ce ID: [id number] Jd lable Time: 01:00:00 PM Not Available [facility] 0 21:36:12 Speciali zed medical examinat ion Active 2012 Gynecolo gical Examinat ion;Curtis rded Elsewher e: No Locat ion: [facility] S ource: EHR Log Chipper Operator jurgen: N Practi ce ID: [id number] Jd lable Time: 03:30:00 PM Not Available [facility] 0 21:36:12 Acute vaginiti s 66382766 Completed 201605/01/2021 Acute vulvovag initis;R ecorded Elsewher e: No Locat ion: [facility] S ource: EHR Log Chipper Operator jurgen: N Practi ce ID: [id number] Jd lable Time: 03:15:00 PM Christelle Gill [facility] 2 13:04:[address] Concept Active 2018 Encntr for general adult medical exam w/o abnormal findings ;Recorde d Elsewher e: No Locat ion: [facility] S ource: EHR Log Chipper Operator jurgen: N Practi ce ID: [id number] Jd lable Time: 04:30:00 PM Not Available [facility] 0 21:36:12 Removal of intraute rine device Active 2018 Encounte r for removal of intraute rine contrace ptive device;R ecorded Elsewher e: No Locat ion: [facility] S ource: EHR Log Chipper Operator jurgen: N Practi ce ID: [id number] Jd lable Time: 05:00:00 PM Not Available [facility] 0 21:36:12 Dyspareu celia Active 2016 Dyspareu celia not due to a substanc e or known physiol cond;Rec orded Elsewher e: No Locat ion: Rosy garcia [facility] S ource: EHR Log Chipper Operator jurgen: N Reyna ce ID: [id number] Jd lable Time: 03:30:00 PM Not Available [facility] 0 21:36:12 Problem Notes None recorded. Procedures Surgical History Date Name Laterality Status Provider Name and Address Organization Details Recorded Time 05/02/19 Date of Last Pap Smear completed Veronica Foy [facility] 08/16/2022 11:48:00 02/25/19 11 Cholecystectomy completed Christelle Garland [facility] 05/01/2021 13:06:39 Imaging Results Imaging Date Name Status LastModified by Organiz ation Details LastModified Time 08/30/2022 US, breast, unilateral, w/ axilla completed [address] [place] [address], [address], 09/08/2022 10:28:27 09/24/2023 US, breast, unilateral completed [address], [address], 09/25/2023 15:20:38 Procedure Notes None recorded. Medical Equipment None Reported. Allergies No known drug allergies Medications Name Sig Start Date Stop Date Status Note LastModified by Organization Details LastModified Time Mirena 21 mcg/24 hr (up to 8 years) 52 mg intrauter ine device 09/11 completed Prescrib ed Elsewher e: Yes Loca tion: [facility] M odify By: loyd parikh DateTime : 07/26/19 13 03:30:00 PM Not Available Not Available Not Available clindamyc in HCl 300 mg capsule Take 1 capsule twice a day by oral route with meals for 7 days. 08/26 completed Not Available Not Available Not Available ibuprofen 800 mg tablet take 1 tablet the night before the procedur e and one two hours before 05/01 completed Prescrib ed Elsewher e: No Locat ion: Rosy garcia [facility] [facility] odify By: [email or web address] Encounte r DateTime : 04/21/19 04:45:00 PM Not Available Not Available Not Available fluconazo le 150 mg tablet Take 1 tablet every day by oral route for 1 day. 08/26 completed Not Available Not Available Not Available hydrocodo ne 5 mg-acetam inophen 325 mg tablet take 2 tablet by oral route 2 hr before the procedur e 04/21 completed Prescrib ed Elsewher e: No Locat ion: Rosy garcia [facility] odify By: [email or web address] Encounte r DateTime : 04/21/19 04:45:00 PM Not Available Not Available Not Available rizatript an 10 mg tablet TAKE 1 TABLET BY MOUTH AT ONSET OF HEACHE, IF NO RELIEF MAY REPEAT 1 TABLET AFTER AT LEAST 2 HOURS, DO NOT EXCEED 3 TABLETS IN 24 HOURS 08/26 completed Not Available Not Available Not Available ondansetr on 8 mg disintegr ating tablet place 1 tablet under tongue 2 hours before procedur e 04/22 completed Prescrib ed Elsewher e: No Locat ion: Rosy garcia [facility] odify By: [email or web address] Encounte r DateTime : 04/21/19 04:45:00 PM Not Available Not Available Not Available alprazola m 0.5 mg tablet Take 1 tablet every 6-8 hours by oral route. 08/16 completed Not Available Not Available Not Available Metrogel Vaginal 0.75 % (37.5 mg/5 gram) insert 1 applicat orful by vaginal route every day at bedtime 11/27 completed Prescrib ed Elsewher e: No Locat ion: Paxton radha [facility] odify By: loyd Garcia ncoac DateTime : 06/08/19 03:30:00 PM Not Available Not Available Not Available mupirocin 2 % topical ointment APPLY OINTMENT TOPICALL Y TWICE DAILY 08/26 completed Not Available Not Available Not Available ergocalci ferol (vitamin D2) 1,250 mcg (50,000 unit) capsule TAKE 1 CAPSULE BY MOUTH ONCE A WEEK FOR 12 WEEKS 08/16 completed Not Available Not Available Not Available ParaGard T 380A 380 square mm intrauter ine device 04/13 completed Prescrib ed Elsewher e: Yes Loca tion: Rosy garcia [facility] odify By: himanshu Davenport r DateTime : 09/12/19 02:30:00 PM Not Available Not Available Not Available doxycycli ne hyclate 100 mg tablet take 1 tablet by oral route 2 times every day 01/06 completed Prescrib ed Elsewher e: No Locat ion: Rosy garcia [facility] odify By: jane kraus DateTime : 11/28/19 05:15:00 PM Not Available Not Available Not Available amoxicill in 875 mg-potass ium clavulana te 125 mg tablet TAKE 1 TABLET BY MOUTH EVERY 12 HOURS FOR 10 DAYS 08/26 completed Not Available Not Available Not Available Nuvessa 1.3 % (65 mg/5 gram) vaginal gel insert 1 applicat orful by vaginal route once at bedtime 04/13 completed Prescrib ed Elsewher e: No Locat ion: [facility] odify By: himanshu Davenport r DateTime : 09/16/19 01:54:43 PM Not Available Not Available Not Available ID NOW COVID-19 Test Kit DIRECTED 08/16 completed Not Available Not Available Not Available Vitals Date Recorded Body height Body mass index (BMI) Body weight Systolic blood pressure Diastolic blood pressure Provider Name and Address Organization Details Last Updated DateTime 05/01/2021 173.99 cm 22.2 kg/m2 63436.67 g 101 mm[Hg] 61 mm[Hg] Christelle Garland [facility] 2 13:04:03 Date Recorded Body height Body mass index (BMI) Body weight Systolic blood pressure Diastolic blood pressure Provider Name and Address Organization Details Last Updated DateTime 08/16/2022 173.99 cm 20.4 kg/m2 81301.56 g 106 mm[Hg] 69 mm[Hg] Veronica Foy [facility] 3 11:47:33 Date Recorded Body height Body mass index (BMI) Body weight Systolic blood pressure Diastolic blood pressure Provider Name and Address Organization Details Last Updated DateTime 09/04/2022 173.99 cm 20.5 kg/m2 82978.15 g 104 mm[Hg] 67 mm[Hg] Veronica Foy [facility] 3 09:11:33 Date Recorded Body height Body mass index (BMI) Body weight Systolic blood pressure Diastolic blood pressure Provider Name and Address Organization Details Last Updated DateTime 08/27/2023 173.99 cm 20.2 kg/m2 28934.97 g 107 mm[Hg] 67 mm[Hg] Laila Beckwith [facility] 4 14:45:10 Social History Question Answer Notes LastModified by Organizat ion Details LastModified Time Tobacco Smoking Status Current Every Day Smoker Christelle toribio, [facility] 05/01/2021 13:06:22 In The 14 Days Before Symptom Onset, Have You Had Close Contact With A Laboratory-confirm ed COVID-19 While That Case Was Ill? No Information n ot available 08/16/2022 In The 14 Days Before Symptom Onset, Have You Had Close Contact With A Person Who Is Under Investigation For COVID-19 While That Person Was Ill? No Information not available 08/16/2022 Have You Been To An Area Known To Be High Risk For COVID-19? No Information not available 08/16/2022 Sex: Unknown Functional Status None recorded. Mental Status None recorded. Family History Relationship Description Onset Age of this Age Resolved Age Notes LastModified by Organization Details LastModified Time Brother Malignant neoplasm of skin [email or web address] Not available 2021 13:06:04 Mother Malignant tumor of ovary 30 [email or web address] Not available 2021 13:06:17 Medical History Condition Response Allergies (Food, seasonal, environmental ) N Other N Breast Cancer N Drug/Latex Allergies/Reactions N Blood Transfusion N Dermatologic Disorders N Lung Disease N Defects or Inherited Disease N Breast Problem N Gestational Diabetes N Hematologic disorders N Anesthesia Complications N History of STI Y Deep Vein Thrombosis N Polycystic ovary syndrome N Anxiety Disorder N Autoimmune disease N Arthritis N Infertility N Polyps N Acid Reflux (GERD) N History of abnormal pap N Cancer N Stroke N Varicosities N Neurologic/Epilepsy N Endometriosis N High Cholesterol N Headaches N Fibromyalgia N Kidney Disease N Heart Problems N Kidney or Bladder Problems N Thyroid Problems N GI Problems N Eating Disorder N Anemia N Art (IVF or FET) N Psychiatric Illness N Ovarian Cancer N Diabetes N Pulmonary (TB, Asthma) N Hepatitis/Liver Disease N No Past Medical History N Eczema N Urinary Tract Infection N Abuse/Domestic Violence N Asthma N Trauma/Violence N Depression/ depression N Heart Disease N Pre-Eclampsia N Hypertension N Osteoporosis N Thrombophilias N Gynecological History Statement/Question Response Abnormal Pap N Date of Last Mammogram Flow Moderate Date of LMP 08/22/2023 On BCP's at Conception? N Was last menstrual period normal Y STIs/STDs Y HPV Vaccine N Colposcopy Duration of Flow (days) 5 Current Control Method None Are cycles usually normal Y Date of Last Colonoscopy Sexually Active? Y Menses Monthly Y Date of Last Pap Smear 05/01/2021 Desired Control Method None LMP Definite Obstetrics History GPAL:G 2 P 2 0 0 2 Type Value Full Term 2 Living 2 Total 2 Past Encounters Encounter ID Performer Location Encounter Start Date Encounter Closed Date Diagnosis/Indication Diagnosis SNOMED-CT Code Diagnosis ICD10 Code Diagnosis Note [id number] Santos Eng MD [facility] [address] [address] 05/01/2021 12:46:46 05/01/2021 13:46:10 Gynecologic examination 24524595 Z01.419 Z11.51 This patient is here for her annual exam. A thorough history was taken. A physical exam was performed. Age appropriat e routine health screening was ordered, performed, and discussed. Recommende d testing was ordered. She was asked to follow up in one year. She will be informed of any test results. this patient reports episodes of intense anxiety. She has event related anxiety. She would like to try p.r.n. medication . She is for not want to take anything every day. She seems to have suffered significan tly from her episodes of anxiety. Talked about Xanax. She is given detailed warnings about the increased use of Xanax. She will be given 25 Xanax. 0.5 mg. patient has a right lateral breast mass that is tender. To obtain breast ultrasound . Cholestero l - Today Pap - today [id number] Lyndsey Appiah [facility] [address] [address] 08/16/2022 11:41:19 08/16/2022 12:15:42 Gynecologic examination 44722546 Z01.419 Take Calcium with Vitamin D 1200mg daily if not receiving in daily diet. It is strongly advised to have an annual flu shot and up can obtain at most pharmacies . If you have not had a TDap shot in the last 10 years you should obtain one as well. Discussed with patient & provided with informatio n regarding Gardisil vaccine to prevent the 4 strains for HPV that cause cervical cancer if under age 26. Encourage safe sexual practices, to use condoms and limit partners if not already in a monogamous relationsh ip. Do monthly self breast exams. Have mammogram yearly or every other year depending on family history. BRCA testing is now available for patients with strong genetic history of female cancer. If interested contact the office. Engage in daily exercise of low impact aerobic exercise 45-60 minutes 4-5 times weekly. Avoid tobacco and illicit drugs as well as using moderation with alcohol intake less than 1-2 8 oz beverages daily. This lifestyle behavior pattern will lead to less health conditions and longer life span. If BMI greater than 25 weight watchers or dietary consult advised. Patient received above instructio ns, and questions have been answered. If you have any questions please call or respond to this email. Patient was made aware of the patient portal and may obtain a paper copy of today's plan if desired. Pap/hpv q3-5yrs per asccp unless otherwise indicted STD Screen declinedGe netic Screen discussedC olon Screen PCPDexa Screen PCPRoutine Labs PCP Mass of right breast 080 [id number] N63.10 Likely just fibrocysti c changes in right upper quadrant of breast but since this is a change for her & it is more predominan tly on right vs left we agreed to get a breast US for baseline imaging.Or Christine call to scheduleAw ait results for next steps POC [id number] [facility] [address] [address] 09/04/2022 09:03:57 09/05/2022 10:24:08 Pain of right breast [id number] N64.4 N60.01 Today we agreed to the following: Abx with yeast prevention for possible breast infection. She will contact triage Vandana/Norman conner and let them know how she is doing. IF sx's still present we will refer to breast specialist for consult and if sx's resolved then plan on repeating targeted US in 6mos as recommende d by imaging report. Understand ing verbalized and all questions answered.N o change in exam today. Time spent in visit is a total of 15 mins with at least 50% of visit consisting of counseling and review of plan of care. [id number] SERA Ennis [facility] [address] [address] 08/27/2023 14:34:10 08/27/2023 15:12:17 Gynecologic examination [id number] Z01.419 WWEpap updateddec lined STI screenrout ine labs UTD/PCP It is strongly advised to have an annual flu shot and up can obtain at most pharmacies . If you have not had a TDap shot in the last 10 years you should obtain one as well.Discu ssed with patient & provided with informatio n regarding HPV vaccine if applicable . Encourage safe sexual practices, to use condoms and limit partners if not already in a monogamous relationsh ip.Do monthly self breast exams. BRCA testing is now available for patients with strong genetic history of female cancer. If interested contact the office.Eng age in regular exercise. Avoid tobacco and illicit drugs. This lifestyle behavior pattern will lead to less health conditions and longer life span. If BMI greater than 25 dietary consult advised. Patient received above instructio ns, and questions have been answered. If you have any questions please call or respond to this email. Patient was made aware of the patient portal and may obtain a paper copy of today's plan if desired. Mass of right breast 883 [id number] N63.10 order given for 6 month f/u right breast u/s Health Concerns Section Related Observation LastModified by Organization Detai ls LastModified Time None Recorded Concern Status LastModified by Organization Details LastModified Time None Recorded Advance Directives Directive None Recorded Payers Encounter Date Sequence Insurance Name Policy Number Policy Jack Covered Member ID Jack Member ID Guarantor Name 05/01/2021 2 [facility] (MEDICAID HMO) Adina Osman Ackerman [id number] Adinabrent Ackerman 05/01/2021 1 [facility] [id number] Adina Edmond [id number] Adinabrent Ackerman 08/16/2022 1 [facility] [id number] Adina Osman Edmond [id number] Adinadevin Ackerman 08/16/2022 2 [place] [facility] Adinadevin Ackerman [id number] Adinadevin Ackerman 09/04/2022 1 [facility] [id number] Adina N Feli [id number] Adinadevin Ackerman 09/04/2022 2 [place] [facility] Adinadevin Ackerman [id number] Adinadevin Ackerman 08/27/2023 1 [facility] [id number] Adinabrent Edmond [id number] Adina Ackerman Notes Date Note Type Note Provider Name and Address Organization Details Recorded Time 05/01/2021 text/html Annual GYNReport ed bypatient.History: no gynecologic complaints Menstrual cycle:Normal menses Urinary symptoms:No hematuria; No incontinence Vulva:No genital lesion Vagina:Normal vaginal discharge Breast:No breast lump; No nipple discharge; breast tenderness in the right lateral breast Current Contraception:Michael h control not practiced Sexual complaints:No sexual complaints; No pain during intercourse Psychological symptoms:No depression;Anxiety (untreated) Preventive measures:Encourage self breast examination; Encourage regular exercise Santos Eng MD [address], [place], [address], [facility] 05/01/2021 13:42:57 08/16/2022 text/html Annual GYNReport ed bypatient.Menstrua l cycle:Normal menses Urinary symptoms:No hematuria; No incontinence Vulva:No genital lesion Vagina:Normal vaginal discharge Breast:No breast pain; No breast lump; No nipple discharge Current Contraception:Michael h control not practiced (Spouse infertile per pt) Sexual complaints:No sexual complaints; No pain during intercourse; Normal libido Menopausal Symptoms:No menopausal symptoms; Normal vaginal lubrication Psychological symptoms:No depression; No anxiety; No PMDD Preventive measures:Encourage self breast examination; Encourage regular exercise; Encourage no tobacco use; Encourage regular mammograms starting age 40 [facility] [address], [place], [address], [facility] 08/16/2022 12:06:14 09/04/2022 text/html Here today to review breast US and repeat exam. SERA Grover- [address], [place], [address], [facility] 09/04/2022 17:10:27 08/27/2023 text/html Annual GYNReport ed bypatient.Menstrua l cycle:Normal menses Urinary symptoms:No hematuria; No incontinence Vulva:No genital lesion Vagina:Normal vaginal discharge Breast:No breast pain; No breast lump; No nipple discharge Sexual complaints:No sexual complaints; No pain during intercourse; Normal libido Menopausal Symptoms:No menopausal symptoms; Normal vaginal lubrication Psychological symptoms:No depression; No anxiety; No PMDD Preventive measures:Encourage self breast examination; Encourage regular exercise; Encourage no tobacco useNotes:[id number] h/o abnormal paps h/o mother with ovarian cancer - late diagnostic mammogram done 08/2022 for right breast lump. Bi-rads 3, recommended 6 month f/u right breast u/s - has not had this done SERA Ennis [address], [place], [address], [facility] 08/27/2023 15:11:15 OBGyn Episode Ob Episode Information Episode Created Date Number of Fetuses Patient Bloodtype Patient rh Status Prepregnancy Weight lbs Domestic Partner Domestic Partner Phone Father Name Gang Mower Operator Status 05/02/19 22 1 CLOSED Fetus Data First Name Last Name Admitted to NICU Weight (g) Sex Living Outcome Pediatric Complications Fetus ID Race Codes Race Delivery Type 2919.77 1704 M Full Term [id number] Vaginal Delivery Jose Calculation Initial Ojse Date Initial Exam Date Initial Exam Provider Initial Ultrasound Date Last Menstrual Period Date Ultra Sound Weeks Gestation 0 Eighteen To Twenty Week Jose Update Ultra Sound Date Fundal Height At Umbil Quickening Date Ultra Sound Latest Weeks Gestation Final Jose Confirmed By Final Jose Confirmed Date Final Jose Date Ultra Sound Latest Days Gestation 0 0 Menstrual History Last Menstrual Date Menses Monthly On Bcp Conception Prior Menses Frequency Hcg Plus Date Menarche Onset Age Delivery Information Delivery Date Delivery Type Labor Anesthesia Weeks Gestation Incision Type Labor Labor Length Hrs Delivered By Post Complications Tubal Sterilization Discharge Date Comments 0 Dobson Discharge Information Feeding Method Contraceptive Method Maternal HG B and HCT Levels Ob Episode Information Episode Created Date Number of Fetuses Patient Bloodtype Patient rh Status Prepregnancy Weight lbs Domestic Partner Domestic Partner Phone Father Name Gang Mower Operator Status 05/02/19 22 1 CLOSED Fetus Data First Name Last Name Admitted to NICU Weight (g) Sex Living Outcome Pediatric Complications Fetus ID Race Codes Race Delivery Type 3288.54 2 F Full Term [id number] Vaginal Delivery Jose Calculation Initial Jose Date Initial Exam Date Initial Exam Provider Initial Ultrasound Date Last Menstrual Period Date Ultra Sound Weeks Gestation 0 Eighteen To Twenty Week Jose Update Ultra Sound Date Fundal Height At Umbil Quickening Date Ultra Sound Latest Weeks Gestation Final Jose Confirmed By Final Jose Confirmed Date Final Jose Date Ultra Sound Latest Days Gestation 0 0 Menstrual History Last Menstrual Date Menses Monthly On Bcp Conception Prior Menses Frequency Hcg Plus Date Menarche Onset Age Delivery Information Delivery Date Delivery Type Labor Anesthesia Weeks Gestation Incision Type Labor Labor Length Hrs Delivered By Post Complications Tubal Sterilization Discharge Date Comments 7 Blayze Discharge Information Feeding Method Contraceptive Method Maternal HG B and HCT Levels
[2024-05-04 19:27] VITALS: O2SAT 98
--- NOTE | 2024-05-04 19:58 | ED.CHESTPAIN ---
HPI - Chest Pain General Chief Complaint: Chest Pain Stated Complaint: Chest pain, shortness of breath Time Seen by Provider: 05/04/24 19:19 History of Present Illness HPI narrative: 39-year-old otherwise healthy female presenting to the emergency department for evaluation of chest pain, shortness of breath. Patient states that since yesterday she has been having intermittent chills, feeling cold, feeling palpitations and noted that her what should she was tachycardic in the 130s to 140s occasion with minimal exertion. She also notes some intermittent discoloration in her fingertips that have since resolved. She has a family history of blood clots but no personal history of thromboembolic event such as PE, DVT. No history of Joy phenomenon or rheumatological disease. She is otherwise in her normal state of health. Related Data Allergies Allergy/AdvReac Type Severity Reaction Status Date / Time No Known Allergies Allergy Verified 05/04/24 17:23 Review of Systems Review of Systems: As reviewed above in HPI [facility] Surgical History Surgical History Hx of cholecystectomy Social History Social History Smoking packs per day: 0.5 Smoking cigarettes per day: 10.0 Years smoked: 14 Smoking pack-years: 7.00 Smoking status: Former smoker Alcohol intake: current Alcohol use details: socially,1-2 times a month Substance use: never Exam Narrative: GENERAL: [Well-appearing, well-nourished, and in no acute distress.] HEAD: [Normocephalic, atraumatic.] EYES: [PERRLA and EOMI.] ENT: Nares clear, no rhinorrhea or epistaxis. Mucous membranes moist. NECK: Supple. CHEST: [Clear to auscultation. No respiratory distress.] HEART: [Regular rate and rhythm]. No murmur heard. [Normal peripheral pulses.] ABDOMEN: [Soft, nondistended], [nontender], [No rigidity or guarding] EXTREMITIES: Normal range of motion. [No edema.] SKIN: Warm, dry, no rash. NEURO: [No focal deficits]. Alert and oriented [x3.] PSYCH: [Normal mood and affect.] Course Vital Signs Vital signs: Vital Signs Temperature 37.1 C 05/04/24 17:24 Pulse Rate 76 05/04/24 17:24 Respiratory Rate 16 05/04/24 17:24 Blood Pressure 128/66 05/04/24 17:24 Pulse Oximetry 100 05/04/24 17:24 Oxygen Delivery Room Air 05/04/24 17:24 Temperature 37.1 C 05/04/24 17:24 Pulse Rate 66 05/04/24 20:11 Respiratory Rate 18 05/04/24 20:11 Blood Pressure 117/66 05/04/24 20:11 Pulse Oximetry 99 05/04/24 20:11 Oxygen Delivery Room Air 05/04/24 19:27 MDM - Chest Pain MDM Narrative Medical decision making narrative: 39-year-old otherwise healthy female presenting to the ER for evaluation of chest pain and shortness of breath. She also states that she was feeling tachycardic and noted that her watch states she was tachycardic in the 130s to 140s with minimal exertion. She felt cold throughout the entirety of the day and knows that her fingers were started get discolored with some swelling. No history of renal disease, no history of rheumatologic disease, no known thromboembolic disease. Family history of blood clots. She was otherwise in her normal state of health. She has no signs or symptoms of a DVT. She is hemodynamically stable without any tachycardia, fever, hypoxia. She has a largely unremarkable physical examination with 2+ symmetric pulses, warm well-perfused extremities. Some asymmetric swelling in the fingers on the right side without any overlying skin changes cellulitis or signs of injury. Clinically patient appears well and her symptoms could be secondary to intermittent palpitations, hyperthyroidism, hypothyroidism, Raynaud's phenomenon, less likely thromboembolic ventral cardiopulmonary process but ACS PE on the differential. Large workup was ordered including CBC, CMP, troponin, EKG, CT angiography of the chest. 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 Patient's workup is largely unremarkable. No leukocytosis or anemia. Normal platelet count. Negative troponin x2. Normal electrolytes, negative inflammatory markers such as ESR. Normal coagulation studies. Normal renal function, normal hepatic function. Negative lipase. Normal glucose. Normal TSH level. CT angiography shows no evidence of PE, no acute process in the chest aside from a left upper lobe partially solid nodule, possibly inflammation versus infection. Incidentally found not consistent with patient's history of story. Patient was re-evaluated and doing well without any symptoms. I told her about the pulmonary nodule that needs follow-up with regular doctor otherwise unremarkable workup and she felt comfortable with discharge home at this time and given return precautions. Patient's questions were answered and she was provided discharge instructions at this time. Medical Records Data Attestation: I reviewed the patient's medical records. Lab Data Attestation: I reviewed the patient's lab results. 05/04/24 17:34 05/04/24 17:34 Labs: Lab Results 05/04/24 05/04/24 Range/Units 17:34 20:55 WBC 8.9 (4.5-10.0) K/mm3 RBC 3.78 L (4.2-5.4) M/mm3 Hgb 12.5 (12.0-15.0) g/dL Hct 36.2 L (37.0-47.0) % MCV 95.8 (80-100) fl MCH 33.1 (26-34) pg MCHC 34.5 (32-36) g/dl RDW 11.8 (11.5-14.5) % Plt Count 291 (150-375) k/mm3 MPV 9.9 (7.4-10.4) fl Immature Gran % (Auto) 0.2 (0-0.5) % Neut % (Auto) 59.1 (45.5-73.1) % Lymph % (Auto) 32.1 (18.3-44.2) % [place] % (Auto) 6.8 (2.6-8.5) % Eos % (Auto) 1.2 (0-4.4) % Baso % (Auto) 0.6 (0.2-1.2) % Lymph # (Auto) 2.86 (0.9-3.2) K/mm3 [place] # (Auto) 0.6 (0.1-0.6) K/mm3 Eos # (Auto) 0.1 (0-0.3) K/mm3 Baso # (Auto) 0.1 (0.0-0.1) K/mm3 Abs Immat Gran (auto) 0.02 (0.00-0.031) K/mm3 Absolute Neuts (auto) 5.3 (1.3-6.7) K/mm3 Absolute Nucleated RBC 0.000 (0.0-0.012) K/mm3 Nucleated RBC % 0.0 (0.0-0.2) % ESR 18 (0-20) mm/hr PT 13.8 (11.1-14.7) Seconds INR 1.0 APTT 32.3 (22.3-36.8) Seconds Sodium 137 (137-145) mmol/L Potassium 3.5 (3.4-5.0) mmol/L Chloride 103 (98-107) mmol/L Carbon Dioxide 24 (22-30) mmol/L Anion Gap 10 (4-12) mmol/L BUN 12 (7-17) mg/dL Creatinine 0.82 (0.7-1.0) mg/dL Estim Creat Clear Calc 76 ml/min Estimated GFR > 60 (59 - ) Glucose 94 (65-110) mg/dL Calcium 9.2 (8.4-10.2) mg/dL Total Bilirubin 0.4 (0.2-1.3) mg/dL AST 24 (14-36) U/L ALT 18 (6-35) U/L Alkaline Phosphatase 56 (38-126) U/L Troponin I < 0.012 < 0.012 (0.000-0.034) ng/mL Total Protein 7.0 (6.3-8.2) g/dL Albumin 4.4 (3.5-5.1) g/dL Lipase 128 (23-300) U/L TSH (Reflex) 4.650 (0.465-4.68) uIU/mL Free T4 Pending Imaging Data Attestation: I personally reviewed and interpreted this imaging study as follows: My impression: Impressions Chest X-Ray 05/04/24 18:05 IMPRESSION: No focal infiltrate or effusion. Chest CTA 05/04/24 20:54 IMPRESSION: No CT evidence of acute pulmonary embolus. 6 mm left upper lobe partly solid pulmonary nodule, presumably a small focus of inflammation or infection. Recommend low-dose noncontrast CT of the chest in 3-6 months to confirm resolution. Otherwise, no acute process detected in the chest. ECG Data EKG #1: Attestation: I personally reviewed and interpreted this ECG as follows: ECG completion date: 05/04/24 ECG completion time: 21:00 Prior ECG tracings: available for review Interpretation: Regular rate, regular rhythm and axis. Rate of 62 beats per minute, QRS 101, QTC [address] segment elevations, depressions or inversions. No significant interval change compared to prior EKG today. Overall final interpretation normal sinus rhythm. Discharge Plan Discharge Clinical Impression: Atypical chest pain Patient Disposition: Home, Self-Care Condition: Stable Instructions: Antibiotic Form, Chest Pain (ED) Additional Instructions: Your cardiac workup, CT angiography, electrolytes and thyroid numbers were all normal. No signs of active disease or concerning findings. You do have a small pulmonary nodule in your left upper lobe which is likely an old infection or an air cyst. Recommendations to follow-up with a repeat imaging in 3-6 months to make sure this goes away. Call your regular doctor for close follow-up after an ED visit. Take ibuprofen or Advil every 6 hours as needed for residual pain. Return with any new or worsening concerns at any time. Patient Language: Sami Prescriptions: No Action mupirocin 2 % ointment 1 applic topical BID Qty: 15 0RF amoxicillin-pot clavulanate 875-125 mg tablet 1 tablet PO Q12H 10 Days Qty: 20 0RF rizatriptan [Maxalt] 10 mg tablet See Rx Instructions PO .COMPLEX Qty: 9 0RF Rx Instructions: take 1 tab at onset of headache; if no relief may repeat 1 tab after at least 2 hrs; max = 3 tabs/24 hr PO Follow-up/Referrals: Manny Murphy APRN [Primary Care Provider] - Time of Disposition: 21:58 Quality HEART score for chest pain patients History: slightly suspicious ECG: normal Age: < or = to 45 years Risk factors: no risk factors known Troponin: < or = to 1x normal limit Heart score: 0
[2024-05-04 20:11] VITALS: BP 117/66; PULSE 66; RESP 18; O2SAT 99
--- NOTE | 2024-05-04 20:13 | ECG_ITS ---
Test Date: 2024-05-04 21:00:44 Measurements Intervals [place] Rate: 62 P: 69 VA: 149 QRS: 66 QRSD: 101 T: 57 QT: 421 QTc: 430 Interpretive Statements SINUS RHYTHM POSSIBLE LEFT ATRIAL ENLARGEMENT [-0.1mV P WAVE IN V1/V2] INCOMPLETE RIGHT BUNDLE BRANCH BLOCK Compared to ECG 05/04/2024 17:30:59 NO SIGNIFICANT CHANGES Electronically Signed On 05-05-2024 14:36:26 CDT by Дмитрий Oliver M.D.
--- NOTE | 2024-05-04 20:23 | PC.NURSE ---
two attempts made to obtain iv access, radiology going to attempt to obtain access for cta.
[2024-05-04 21:27] LABS: Troponin I < 0.012 ng/mL (0.000-0.034)
[2024-05-04 21:29] LABS: Erythrocyte Sedimentation Rate 18 mm/hr (0-20)
[2024-05-04 22:36] LABS: CRP < 0.5 mg/dL (<1.0)
[2024-05-04 22:46] VITALS: PULSE 76; RESP 18; TEMP 36.9; O2SAT 100
[2024-05-04 23:04] LABS: Total Triiodothyronine (T3) 1.67 NG/ML (0.97-1.69)
== END 2024-05-04 22:48 | disposition home or self-care (01) ==
PROVIDERS: Emergency Medicine; Emergency Provider Student in an Organized Health Care Education/Training Program; PCP Nurse Practitioner
DX: R07.89 Other chest pain (principal); Z87.891 Personal history of nicotine dependence; Z90.49 Acquired absence of other specified parts of digestive tract; R91.1 Solitary pulmonary nodule; I45.10 Unspecified right bundle-branch block; R94.31 Abnormal electrocardiogram [ECG] [EKG]
CPT/HCPCS: 36415; 71046; 71275; 80053; 83690; 84439; 84443; 84480; 84484; 85025; 85610; 85652; 85730; 86140; 93005; 99284; Q9967

== ENCOUNTER 2025-01-28 11:47 | Outpatient (CLI) | payer OTHER, SELFPAY ==
[2025-01-28 12:14] LABS: Hematocrit 39.0 % (37.0-47.0); Hemoglobin 13.4 g/dL (12.0-15.0); Mean Corpuscular HGB Conc 34.4 g/dl (32-36); Mean Corpuscular Hemoglobin 32.8 pg (26-34); Mean Corpuscular Volume 95.6 fl (80-100); Platelet Count Result 264 k/mm3 (150-375); Red Blood Count 4.08 M/mm3 (4.2-5.4); White Blood Count 7.4 K/mm3 (4.5-10.0)
[2025-01-28 12:31] LABS: Alanine Aminotransferase 31 U/L (6-35); Albumin Level 4.6 g/dL (3.5-5.1); Alkaline Phosphatase 54 U/L (38-126); Anion Gap 4 mmol/L (4-12); Aspartate Amino Transferase 38 U/L (14-36); Bilirubin,Total 0.6 mg/dL (0.2-1.3); Blood Urea Nitrogen 12 mg/dL (7-17); CRP < 0.5 mg/dL (<1.0); Calcium 9.2 mg/dL (8.4-10.2); Carbon Dioxide 28 mmol/L (22-30); Chloride 102 mmol/L (98-107); Estimated Glomerular Filt Rate > 60; Glucose 105 mg/dL (65-110); Potassium 3.9 mmol/L (3.4-5.0); Sodium 134 mmol/L (137-145); Total Protein 7.5 g/dL (6.3-8.2)
== END 2025-01-28 11:48 | disposition home or self-care (01) ==
LOC: ANHLAB 11:48
PROVIDERS: PCP Nurse Practitioner; Visit Provider Nurse Practitioner
DX: Z00.00 Encounter for general adult medical examination without abnormal findings (principal)
CPT/HCPCS: 36415; 80053; 85027; 85652; 86140

== ENCOUNTER 2025-02-05 13:09 | Outpatient (CLI) | payer OTHER, SELFPAY ==
--- NOTE | 2025-02-16 12:14 | WPDHOLTEREM ---
Holter/Event Monitor Holter/Event Monitor Date of procedure: 02/05/25 Holter/Event Procedure: 3-7 Day Holter Monitor Indications: Tachycardia Conclusion: 1. 4 days holter monitor on 02/05/25. 2. Underlying rhythm is sinus rhythm. HR range 44-155 bpm; average HR 70 bpm. HR at 44 bpm was on 02/06/25 at 5:57 pm. 3. There are rare premature supraventricular complexes. No supraventricular tachycardia. 4. There are rare premature ventricular complexes. No ventricular tachycardia. 5. No significant pauses greater than 3 seconds. 6. No symptoms available for correlation.
== END 2025-02-05 13:10 | disposition home or self-care (01) ==
PROVIDERS: PCP Nurse Practitioner; Visit Provider Internal Medicine
DX: I49.1 Atrial premature depolarization (principal); I49.3 Ventricular premature depolarization; R00.0 Tachycardia, unspecified
CPT/HCPCS: 93242